=== PATIENT | male | born 1995 | race Caucasian/White ===

== ENCOUNTER → 2016-11-30 | Outpatient (CLI) | payer OTHER ==
[~2016-11-30] MED LIST: GASTROGRAFIN SOLUTION 30ML (Q9963) As Ordered ONE; ISOVUE-370 76% 100ML VIAL (Q9967) As Ordered ONE
--- NOTE | 2016-11-30 10:51 | REP ---
CT abdomen pelvis with bowel contrast and without and with IV contrast: There are no comparison studies. The visualized lung clemente are unremarkable. The hepatic parenchyma, gallbladder and pancreas are unremarkable on both phases of the study. The spleen measures 12 cm cranial caudad and is mildly enlarged but otherwise unremarkable. The adrenals, kidneys and abdominal aorta are unremarkable. There are occasional normal size mesenteric nodes throughout the abdomen, nonspecific. There is no bowel distension. There is no ascites. Pelvis: The appendix is not identified, however, there is no pericecal inflammation. There are a few normal-sized pericecal nodes. There is no pelvic ascites. The bladder is unremarkable. The pelvic bowel loops are unremarkable. Impression: The gallbladder and pancreas are unremarkable. The appendix is not identified, however there is no pericecal inflammation. There are occasional mesenteric nodes throughout the abdomen. There are a few normal-sized nodes adjacent to the cecum, nonspecific. There is no hydronephrosis. Otherwise, negative CT of the abdomen and pelvis. Signed by Yovani Rowell MD 11/30/2016 10:41 A
== END ==
LOC: M RAD 08:31
PROVIDERS: ATTEND Physician Assistant
DX: R10.9 Unspecified abdominal pain (principal)
CPT/HCPCS: 74178; Q9963; Q9967

== ENCOUNTER → 2016-12-04 | Outpatient (REF) | LOC: M LAB REF 17:24 | PROVIDERS: ATTEND Physician Assistant | DX: R77.9 Abnormality of plasma protein, unspecified (principal) ==

== ENCOUNTER 2019-10-30 03:28 | Emergency (ER) | payer OTHER ==
[~2019-10-30] VITALS: Ht 182.9 cm; Wt 83.0 kg
[2019-10-30] MEDS ORDERED: IBUP-1022 PO (03:47)
[2019-10-30] MEDS ORDERED: ACET1TAB55 PO (03:47)
[2019-10-30] MEDS ORDERED: MORPHINE 4 MG/ML 1ML VIAL/SYRINGE (J2270) IV ONE (04:00)
[2019-10-30 04:16] LABS: BASO # 0.1 10^3/uL (0.0-0.2); EOS # 0.5 10^3/uL (0.0-0.5); EOS % 7.6 % (0.0-3.0); HEMATOCRIT 45.1 % (42.0-52.0); HEMOGLOBIN 14.9 g/dl (13.5-17.5); LYMPH # 2.1 10^3/uL (1.5-5.0); LYMPH % 29.7 % (24.0-44.0); MEAN CORPUSCULAR HEMOGLOBIN 29.7 pg (27.0-33.0); MONO # 0.4 10^3/uL (0.0-0.8); NEUTROPHILS # 3.9 10^3/uL (1.5-8.5); NEUTROPHILS % 55.4 % (36.0-66.0); PLATELET COUNT, AUTOMATED 180 10^3/uL (150-450); RED BLOOD COUNT 5.01 10^6/uL (4.30-6.10)
[2019-10-30] MEDS ORDERED: ACETAMINOPHEN TAB 650MG DOSE (2X325MG) PO ONE (04:30)
[2019-10-30 04:33] LABS: ALBUMIN 4.2 GM/DL (3.2-5.2); ALT/SGPT 30 U/L (12-78); BILIRUBIN,DIRECT 0.1 MG/DL (0.0-0.2); BILIRUBIN,TOTAL 0.3 MG/DL (0.2-1.0); BLOOD UREA NITROGEN 17 MG/DL (7-18); CALCIUM LEVEL 8.6 MG/DL (8.5-10.1); CARBON DIOXIDE LEVEL 25 MEQ/L (21-32); CHLORIDE LEVEL 109 MEQ/L (98-107); CK-MB VALUE MASS 2.2 NG/ML (<3.6); CPK CREATINE PHOSPHOKINASE 495 U/L (39-308); CREATININE FOR GFR 0.86 MG/DL (0.70-1.30); GLOMERULAR FILTRATION RATE > 60.0 (>60); GLUCOSE, FASTING 90 MG/DL (70-100); MB/CK RELATIVE INDEX 0.44 (< OR =4); SODIUM LEVEL 142 MEQ/L (136-145); TROPONIN I < 0.02 NG/ML (< 0.10)
--- NOTE | 2019-10-30 05:22 | REPVR ---
PROCEDURE INFORMATION: Exam: US Duplex Left Upper Extremity Veins, Limited Exam date and time: 10/30/2019 4:23 AM Age: 23 years old Clinical indication: Pain; Arm, upper and arm, lower; Left; Additional info: Lue pain R/O dvt TECHNIQUE: Imaging protocol: Real-time Duplex ultrasound of the Left Upper Extremity with 2-D peralta scale, color Doppler flow and spectral waveform analysis with image documentation. Limited exam focused on the left upper extremity veins. COMPARISON: No relevant prior studies available. FINDINGS: Left deep veins: Unremarkable. Axillary and brachial veins are patent throughout without thrombus. Normal Doppler waveforms. Normal compressibility and/or augmentation response. Visualized internal jugular and subclavian veins are patent. Left superficial veins: Unremarkable. Visualized cephalic and basilic veins are patent without thrombus. Soft tissues: Unremarkable. IMPRESSION: No acute findings. No evidence of deep vein thrombosis. Electronically signed by: Yasmani Flores On 10/30/2019 05:21:51 AM
[2019-10-30 05:45] VITALS: BP 109/55
--- NOTE | 2019-10-30 07:35 | ECGEPIP ---
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
== END 2019-10-30 06:23 | disposition home or self-care (01) ==
LOC: M ED 03:28
DX: M79.602 Pain in left arm (principal); F17.200 Nicotine dependence, unspecified, uncomplicated; R22.32 Localized swelling, mass and lump, left upper limb; Z88.1 Allergy status to other antibiotic agents; Z88.8 Allergy status to other drugs, medicaments and biological substances
CPT/HCPCS: 80048; 80076; 82550; 82553; 84484; 85025; 93005; 93041; 93971; 94760; 96374; 99285; J2270

== ENCOUNTER 2020-08-02 20:30 | Emergency (ER) | payer OTHER ==
[~2020-08-02] VITALS: Ht 182.9 cm; Wt 83.2 kg
[~2020-08-02 20:30] MED LIST changes: +ACET1TAB55 PO; -GASTROGRAFIN SOLUTION 30ML (Q9963) As Ordered ONE; +IBUP-1022 PO; -ISOVUE-370 76% 100ML VIAL (Q9967) As Ordered ONE
[2020-08-02] MEDS ORDERED: diazePAM 10 MG TAB PO ONE ×2 (21:45→23:45)
[2020-08-02] MEDS ORDERED: KETOROLAC 60MG 2ML VIAL IM ONE (21:45)
[2020-08-02] MEDS ORDERED: VALI10TA PO (23:45)
[2020-08-02] MEDS ORDERED: NORCO 5/325MG TABLET (BULK FOR ED) PO ONE (23:45)
[2020-08-02] MEDS ORDERED: predniSONE 20 MG TAB PO ONE (23:45)
[2020-08-02] MEDS ORDERED: PRED20TA PO (23:45)
[2020-08-03 00:15] VITALS: BP 124/62
== END 2020-08-03 00:19 | disposition home or self-care (01) ==
LOC: M ED 20:30
DX: M54.6 Pain in thoracic spine (principal); F17.200 Nicotine dependence, unspecified, uncomplicated; Z79.899 Other long term (current) drug therapy; Z88.1 Allergy status to other antibiotic agents
CPT/HCPCS: 96372; 99283; J1885

== ENCOUNTER → 2022-02-21 | Outpatient (REF) | payer OTHER ==
[~2022-02-21] MED LIST changes: +PRED20TA PO; +VALI10TA PO
[2022-02-21 18:37] LABS: GC DNA AMPLIFICATION NEGATIVE (NEGATIVE)
== END ==
LOC: M LAB REF 16:30
PROVIDERS: ATTEND Physician Assistant Medical
DX: R68.82 Decreased libido (principal); Z72.51 High risk heterosexual behavior